=== PATIENT | male | born 1975 | race Caucasian/White ===

== ENCOUNTER 2016-12-18 12:43 | Emergency (ER) | payer SELFPAY ==
[~2016-12-18] VITALS: Ht 172.7 cm; Wt 63.5 kg
[~2016-12-18 12:43] MED LIST: GLUCOSAMINE; HYDR1CAP14; MAGNESIUM; MULTIVITAMIN; VITAMIN B
--- NOTE | 2016-12-18 14:42 | Diagnostic Imaging Report ---
3 views of the left hand INDICATION: Injury. Findings: There is no fracture, dislocation or radiopaque foreign body. There is mild soft tissue swelling and soft tissue air seen around the proximal aspect of the second digit and extending between the second and third metacarpal bones presumably related to laceration. Correlate clinically. IMPRESSION: No fracture seen. Soft tissue air around the proximal aspect of the left index finger may relate to laceration. Correlate clinically. Dictated by: Dictated on workstation # [id number]
--- NOTE | 2016-12-18 14:51 | ED Upper Extremity ---
General Chief Complaint: Laceration Stated Complaint: LEFT INDEX FINGER LAC Nursing Triage Note: ARRIVED VIA AMB. STATES HE CUT HIS LEFT 2ND FINGER ON A KNIFE ET THINKS HE CUT A TENDON. Nursing Sepsis Screen: No Definite Risk Source: patient Exam Limitations: no limitations History of Present Illness Time seen by provider: 14:51 Initial Comments 41 -year-old male patient presents to the emergency department complains of laceration to left second finger. Unable to bend the left index finger. Onset: just prior to arrival Pain/Injury Location: left 2nd finger Method of Injury: incised Modifying Factors: Worse With Other (palpation) Allergies and Home Medications Allergies Coded Allergies: No Known Drug Allergies (Unverified Allergy, Mild, 05/27/09) Home Medications Cephalexin 500 Mg Capsule, 500 MG PO TID, #21 Ref 0 Prescribed by: AALIYAH ZALDIVAR on 12/18/16 1610 Hydrocodone/Acetaminophen 1 Each Tablet, 1 EACH PO Q4H PRN for PAIN, #20 Ref 0 Prescribed by: AALIYAH ZALDIVAR on 12/18/16 1610 Constitutional: no symptoms reported Musculoskeletal: see HPI, joint pain (left 2nd finger) Skin: see HPI, other (laceration left 2nd finger) Psychiatric/Neurological: Denies Numbness, Denies Paresthesia, Tingling, Weakness (left 2nd finger) All Other Systems Reviewed Negative Unless Noted: Yes (Negative excepted noted.) Past Qykmxjn-Ykjtqd-Yegihi Hx Patient Social History Alcohol Use: Denies Use Recreational Drug Use: No Smoking Status: Current Everyday Smoker 2nd Hand Smoke Exposure: Yes Recent Foreign Travel: No Contact w/Someone Who Travel: No Recent Infectious Disease Expo: No Recent Hopitalizations: Yes (PNEUMONIA AT AGE 7) Immunizations Up To Date Tetanus Booster (TDap): Unknown Surgeries HX Surgeries: No Cardiovascular Hx Cardiac Disorders: No Neurological Hx Neurological Disorders: Yes Reproductive System Hx Reproductive Disorders: No Genitourinary Hx Genitourinary Disorders: No Gastrointestinal Hx Gastrointestinal Disorders: No Musculoskeletal Hx Musculoskeletal Disorders: Yes Endocrine Hx Endocrine Disorders: No HEENT HX ENT Disorders: No Blood Transfusions Hx Blood Disorders: No Reviewed Nursing Assessment Reviewed/Agree w Nursing PMH: Yes Family Medical History Significant Family History: No Pertinent Family Hx Physical Exam Vital Signs Vital Sign - Last 12Hours 12/18/16 13:55 Temp 98.0 Pulse 101 Resp 16 B/P (MAP) 139/110 Pulse Ox 99 Capillary Refill : Less Than 3 Seconds General Appearance: WD/WN, no apparent distress Cardiovascular: normal peripheral pulses Elbow/Forearm: normal inspection, non-tender, no evidence of injury, normal ROM , Left Wrist: Yes normal inspection, Yes non-tender, Yes no evidence of injury, Yes normal ROM Hand: Left, laceration (3 cm laceration left 2nd finger overlying the PIP joint.), limited ROM (unable to flex the left 2nd PIP and DIP joint. Full ROM noted in the left MCP joint.), soft tissue tenderness (left 2nd finger), swelling (mild swelling left 2nd finger over the PIP joint.) Neurologic/Tendon: normal sensation (2 point discrimination intact of the left second finger), responds to pain, tendon function deficit (unable to flex the lt 2nd PIP and DIP joint) Neurologic/Psychiatric: alert, normal mood/affect, oriented x 3 Skin: normal color, warm/dry, No cyanosis, other (3 cm laceration left 2nd finger overlying the PIP joint.) Laceration Repair : Wound Location: Upper Extremities (left second finger) Wound Length (cm): 3 Wound's Depth, Shape: linear, sub Q, tendon Wound Explored: clean Irrigated w/ Saline (ccs): 60 Betadine Prep?: Yes (and scrubbed with chlorhexidine and sterile saline) Volume Anesthetic (ccs): 3 (1:1 mixture of 0.5 percent Marcaine and 2 percent lidocaine) Suture: Ethlion Suture Size: 4-0 Number of Sutures: 4 Layer Closure?: 1 Sterile Dressing Applied?: Yes Progress Blood loss minimal. Patient tolerated procedure well. Wound dressed with triple antibiotic ointment, 2 x 2 gauze and tube gauze. Patient given a finger splint to apply tomorrow after showering. Progress/Results/Core Measures Results/Orders My Orders Orders - AALIYAH ZALDIVAR DiphtEstrada(Acell),Tet Adult (Boostrix (12/18/16 14:10) Hand, Left, 3 Views (12/18/16 14:10) Hydrocodone/Apap 7.5/325 Tab (Lortab 7. (12/18/16 14:57) Bupivacaine 0.5% Injection (Sensorcaine (12/18/16 15:00) Lidocaine 2% Injection 20 Ml (Xylocaine (12/18/16 15:00) Medications Given in ED Current Medications Medications Dose Ordered Sig/Yusuf Route Start Time Stop Time Status Last Admin Dose Admin Bupivacaine HCl 30 ml ONCE ONCE INJ 12/18/16 15:00 12/18/16 15:01 DC 12/18/16 15:22 30 ML Lidocaine HCl 20 ml ONCE ONCE INJ 12/18/16 15:00 12/18/16 15:01 DC 12/18/16 15:21 20 ML Vital Signs/I&O Vital Sign - Last 12Hours 12/18/16 12/18/16 13:55 16:13 Temp 98.0 96.2 Pulse 101 86 Resp 16 16 B/P (MAP) 139/110 Pulse Ox 99 98 Blood Pressure Mean: 120 Diagnostic Imaging Diagonstic Imaging: Xray Plain Films/CT/US/NM/MRI: hand Comments Findings: There is no fracture, dislocation or radiopaque foreign body. There is mild soft tissue swelling and soft tissue air seen around the proximal aspect of the second digit and extending between the second and third metacarpal bones presumably related to laceration. Correlate clinically. IMPRESSION: No fracture seen. Soft tissue air around the proximal aspect of the left index finger may relate to laceration. Correlate clinically. Dictated on workstation # [id number] Reviewed: Reviewed by Me (radiology report reviewed by me) Departure Communication Progress Notes Patient seen and evaluated. Wound repair performed. Plan for discharge to home with follow-up as an outpatient with Dr. Whitney. Patient instructed to contact his office for appointment time. Impression Impression: Primary Impression: Laceration of left index finger with tendon involvement Disposition: HOME, SELF-CARE Condition: Improved Departure-Patient Inst. Decision time for Depature: 15:05 Referrals: KAREEM WHITNEY,LOCAL PHYSICIAN (PCP) Primary Care Physician Patient Instructions: Laceration Repair With Stitches (DC), Tendon Laceration ( DC) Add. Discharge Instructions: All discharge instructions reviewed with patient and/or family. Voiced understanding. Medications as instructed. Ibuprofen 800 mg by mouth every 8 hours as needed for pain. Tomorrow morning you may remove the bandage, shower with antibacterial soap, pat dry, apply triple antibiotic ointment twice daily for 3 days and cover with a Band-Aid. Finger splint as instructed. No use of the left index finger. Follow-up with Dr. Whitney as an outpatient in the next 7 days for a recheck and tendon repair. Call today for appointment time. Return to the emergency department for increased pain, redness, fever, drainage , discoloration or any other concerns. Scripts Hydrocodone/Acetaminophen (Hydrocodon -Acetaminophen 5-325) 1 Each Tablet 1 EACH PO Q4H Y for PAIN, #20 TAB 0 Refills Prov: AALIYAH ZALDIVAR 12/18/16 Cephalexin (Cephalexin) 500 Mg Capsule 500 MG PO TID, #21 CAP 0 Refills Prov: AALIYAH ZALDIVAR 12/18/16 AALIYAH ZALDIVAR December 18, 2016 14:51
[2016-12-18] MEDS: LIDOCAINE 2% 20 ML (XYLOCAINE) VIAL INJ ONE (15:21)
[2016-12-18] MEDS: TETANUS,DIPTH,PERTUSS P/F (BOOSTRIX) 0.5 ML VIAL IM STA (15:21)
[2016-12-18] MEDS: HYDROcodone/APAP 7.5 MG/325 MG (LORTAB, LORCET PLUS) TABLET PO STA (15:21)
[2016-12-18] MEDS: BUPIVACAINE 0.5% 30 ML (SENSORCAINE) VIAL INJ ONE (15:22)
[2016-12-18] MEDS ORDERED: HYDR-3812 PO (16:10)
[2016-12-18] MEDS ORDERED: CEPH500C PO (16:10)
[2016-12-18 16:13] VITALS: BP 136/90
== END 2016-12-18 16:13 | disposition home or self-care (01) ==
LOC: EDUNIT# 12:43 → ER 12:46
DX: S61.211A Laceration without foreign body of left index finger without damage to nail, initial encounter (principal); W26.0XXA Contact with knife, initial encounter; Y99.8 Other external cause status
CPT/HCPCS: 12001; 73130; 90471; 90715

== ENCOUNTER 2019-03-22 04:59 | Inpatient (IN) | payer SELFPAY, OTHER | END 2019-03-28 16:20 | disposition EMF | LOC: CATH 09:30 → ER 04:59 → ICU 09:30 → CATH 07:57 → ICU 09:18 | PROC: 5A02210 Assistance with Cardiac Output using Balloon Pump, Continuous (ICD-10-PCS; principal; 2019-03-22) | PROC: 4A023N7 Measurement of Cardiac Sampling and Pressure, Left Heart, Percutaneous Approach (ICD-10-PCS; 2019-03-22) | PROC: B2111ZZ Fluoroscopy of Multiple Coronary Arteries using Low Osmolar Contrast (ICD-10-PCS; 2019-03-22) | PROC: B2151ZZ Fluoroscopy of Left Heart using Low Osmolar Contrast (ICD-10-PCS; 2019-03-22) | PROC: B3101ZZ Fluoroscopy of Thoracic Aorta using Low Osmolar Contrast (ICD-10-PCS; 2019-03-22) | PROC: 5A1945Z Respiratory Ventilation, 24-96 Consecutive Hours (ICD-10-PCS; 2019-03-22) | PROC: 0BH17EZ Insertion of Endotracheal Airway into Trachea, Via Natural or Artificial Opening (ICD-10-PCS; 2019-03-22) | DX: I50.21 Acute systolic (congestive) heart failure (principal); I42.7 Cardiomyopathy due to drug and external agent; R57.0 Cardiogenic shock; J96.00 Acute respiratory failure, unspecified whether with hypoxia or hypercapnia; I95.9 Hypotension, unspecified; I21.A1 Myocardial infarction type 2; J18.1 Lobar pneumonia, unspecified organism; E87.2 Acidosis; F15.10 Other stimulant abuse, uncomplicated; F17.210 Nicotine dependence, cigarettes, uncomplicated; N17.9 Acute kidney failure, unspecified ==